=== PATIENT | male | born 1965 | race American Indian/Alaskan Native ===

== ENCOUNTER 2017-11-22 09:28 | Day surgery (SDC) | payer OTHER ==
[~2017-11-22 09:28] MED LIST: ANCEF/STERILE WATER 2 GM/20 ML IV NR
[2017-11-22] MEDS ORDERED: PERCOCET 5/325 PO PRN ×2 (10:02→15:30)
--- NOTE | 2017-11-22 10:02 | Anesthesia Consultation ---
Anesthesia Consult and Med Hx Date of service: 11/22/17 - Airway Anesthetic Teeth Evaluation: Bridges, Dentures ROM Head & Neck: Adequate Mental/Hyoid Distance: Adequate Mallampati Class: Class II Intubation Access Assessment: Probably Good - Pulmonary Exam CTA: Yes - Cardiac Exam Cardiac Exam: RRR - Pre-Operative Health Status ASA Pre-Surgery Classification: ASA2 Proposed Anesthetic Plan: General - Pulmonary Hx Smoking: Yes (SINCE AGE 9, 2-3 CIG/DAY) - Central Nervous System Hx Psychiatric Problems: No - Other Systems Hx Alcohol Use: Yes (OCCAS) Hx Substance Use: Yes (MARIJUANA) Hx Cancer: No - Additional Comments Anesthesia Medical History Comments: Informed consent obtained
--- NOTE | 2017-11-22 10:02 | Anesthesia Day of Surgery ---
Anesthesia Day of Surgery - Day of Surgery Patient Examined: Yes Patient H&P Reviewed: Yes Patient is NPO: Yes
[2017-11-22] MEDS ORDERED: NACL BACTERIOSTATIC INFILTRATI ONE (10:04)
[2017-11-22] MEDS ORDERED: DIPRIVAN 10 MG/ML IV ONE (10:23)
[2017-11-22] MEDS ORDERED: XYLOCAINE MPF 2% ONE (10:23)
[2017-11-22] MEDS ORDERED: ZEMURON IV ONE ×2 (10:24→13:26)
[2017-11-22] MEDS ORDERED: ZOFRAN ONE (10:24)
[2017-11-22] MEDS ORDERED: DECADRON ONE (10:24)
[2017-11-22] MEDS ORDERED: VERSED IV NR (11:00)
[2017-11-22] MEDS ORDERED: NACL 0.9% 1000 ML 1,000 ML IV SCH (11:00)
[2017-11-22] MEDS ORDERED: MARCAINE-EPI 0.5%-1:200,000 INFILTRATI ONE (11:09)
[2017-11-22] MEDS ORDERED: WATER FOR IRRIG STERILE IR ONE (11:17)
[2017-11-22] MEDS ORDERED: NACL 0.9% IR ONE (11:17)
[2017-11-22] MEDS ORDERED: MARCAINE-EPI 0.25%-1:200,000 INFILTRATI ONE (11:17)
[2017-11-22] MEDS ORDERED: DILAUDID ONE ×2 (11:31→12:57)
--- NOTE | 2017-11-22 13:00 | Consultation ---
History of Present Illness - Reason for Consult Consult date: 11/22/17 - History of Present Illness CC - "unable to insert ramachandran" HPI-- 52 yr old male to undergo hernia repair staff unable to insert ramachandran intro op urology consult uncirc normal testes & scrotum a/P bulbar urethral stricture (cysto, blue sound dilation) home with 16 F cahto tip catheter voiding trial in 7-10 days (office will call pt) cipro/ bactrim etc x 2 weeks Medications and Allergies Allergies Allergy/AdvReac Type Severity Reaction Status Date / Time No Known Allergies Allergy Verified 11/20/17 10:03 Home Medications Medication Instructions Recorded Confirmed Last Taken Type No Known Home Medications [No 11/20/17 11/20/17 Unknown History Reported Home Medications] Active Meds: Active Medications Cefazolin Sodium (Ancef/Sterile Water 2 Gm/20 Ml) 2 gm IV PREOP NR Stop: 11/22/17 23:59 Hydromorphone HCl (Dilaudid) 0.5 mg IV Q10MIN PRN PRN Reason: Pain , Severe (7-10) Stop: 11/22/17 15:00 Sodium Chloride (Nacl 0.9% 1000 Ml) 1,000 mls @ 100 mls/hr IV DIRECT SOLOMON Last Admin: 11/22/17 10:25 Dose: 100 mls/hr Midazolam HCl (Versed) 2 mg IV PREOP NR Stop: 11/22/17 23:59 Last Admin: 11/22/17 10:27 Dose: 2 mg Oxycodone/Acetaminophen (Percocet 5/325) 1 tab PO ONCE PRN PRN Reason: Pain, Moderate (4-6) Stop: 11/22/17 15:00 Exam - Constitutional Vitals: Temp Pulse Resp BP Pulse Ox 97.4 F L 52 L 20 156/92 100 11/22/17 10:15 11/22/17 10:15 11/22/17 10:15 11/22/17 10:15 11/22/17 10:15
[2017-11-22] MEDS ORDERED: TORADOL ONE (13:54)
--- NOTE | 2017-11-22 14:14 | Operative Report ---
Operative Report Operative Report: Date of procedure: 11/22/2017 Pre-operative diagnosis: Left inguinal hernia Post-operative diagnosis: Left inguinal hernia, urethral stricture Procedure name(s): Laparoscopic preperitoneal left inguinal hernia repair with mesh, intraoperative consult to urology for cystoscopy and catheter placement Surgeon: Elizabeth Kelly MD Fryer Operator: None Anesthesia: General, 0.25% Marcaine EBL: Minimal Complications: None Instrument Count: Correct Indications: This is a 52-year-old male with a history of left inguinal bulge. Clinical examination reveals a left inguinal hernia. The above-named procedure was offered to the patient and all risks and benefits were discussed until all questions were answered. He was subsequently brought to the OR. Findings: As above Procedure: The patient was placed supine upon the table after adequate anesthesia was reached. We had difficulty with the Landaverde catheter and after unsuccessful placement consult the urology. Please refer to their dictation. Once the catheter was placed, we reviewed the informed consent. The patient was then prepped and draped in the usual sterile fashion. We infiltrated local anesthetic at the level of the umbilicus. A 1 cm incision was made. Dissection was carried down to the anterior layer of the rectus sheath. This was incised using a 15 blade. The rectus muscles identify retract and laterally. We then inserted a Covidian oval balloon dissector into the pre- peritoneal space. This was inflated. We were clearly able to see the pubic arch as well as the epigastric vessels without difficulty. The balloon was then deflated and substituted for a 10 mm balloon tipped trocar. The preperitoneal space was insufflated a 10 mm mercury. We placed 2 5mm ports both in the midline after infiltration of local anesthetic. This was performed under direct vision. We began our dissection on the left and dissected free the hernia sac from the cord structures. Both the gonadal vessels and the vas deferens were identified and preserved. We then inserted a medium Bard 3-D Max left sided medium mesh into the preperitoneal space. This was secured medially to Leandro's ligament using a Protack device and superiorly and laterally to the anterior abdominal wall. Care was taken to avoid the iliopubic tract. We good coverage of all hernia spaces. I applied Avitene throughout the inguinal space to aid in hemostasis. We then evacuated the insufflation. Removed all ports, and closed all port sites using a 4-0 Monocryl in a subcuticular fashion. The patient tolerated the procedure well was awakened, extubated, and transferred to PACU in no apparent distress.
--- NOTE | 2017-11-22 14:17 | Short Stay Summary ---
Short Stay Documentation Date of service: 11/22/17 - History H&P: dictated - Allergies and Medications Current Medications: Allergies No Known Allergies Allergy (Verified 11/20/17 10:03) Home Medications Medication Instructions Recorded Confirmed Last Taken Type No Known Home Medications [No 11/20/17 11/20/17 Unknown History Reported Home Medications] Active Medications Cefazolin Sodium (Ancef/Sterile Water 2 Gm/20 Ml) 2 gm IV PREOP NR Stop: 11/22/17 23:59 Hydromorphone HCl (Dilaudid) 0.5 mg IV Q10MIN PRN PRN Reason: Pain , Severe (7-10) Stop: 11/22/17 15:00 Sodium Chloride (Nacl 0.9% 1000 Ml) 1,000 mls @ 100 mls/hr IV DIRECT SOLOMON Last Admin: 11/22/17 10:25 Dose: 100 mls/hr Midazolam HCl (Versed) 2 mg IV PREOP NR Stop: 11/22/17 23:59 Last Admin: 11/22/17 10:27 Dose: 2 mg Oxycodone/Acetaminophen (Percocet 5/325) 1 tab PO ONCE PRN PRN Reason: Pain, Moderate (4-6) Stop: 11/22/17 15:00 - Brief post op/procedure progress note Date of procedure: 11/22/17 Pre-op diagnosis: left inguinal hernia Post-op diagnosis: same Procedure: Laparoscopic preperitoneal left inguinal hernia repair with mesh Anesthesia: GETA, local Findings: Inguinal scrotal left inguinal hernia, urethral stricture Surgeon: ARIANE POST Estimated blood loss: 50-100ml Pathology: none Condition: stable - Disposition Condition at discharge: Stable Disposition: DC-01 TO HOME OR SELFCARE Short Stay Discharge Plan Activity: no restrictions, advance as tolerated Diet: regular Wound: keep clean and dry Follow up with: ANOOP HOROWITZ [Primary Care Provider] - 7 Days DONNA CHAPMAN MD [Staff Physician] - 7 Days ARIANE POST MD [Staff Physician] - 7 Days Prescriptions: oxyCODONE /ACETAMINOPHEN [Percocet 5/325 mg] 1 tab PO ONCE PRN #30 tablet PRN Reason: Pain, Moderate (4-6)
[2017-11-22] MEDS: DILAUDID IV PRN ×2 (14:25→14:38)
--- NOTE | 2017-11-22 14:48 | Operative Report ---
PREOPERATIVE DIAGNOSIS: Urethral stricture. POSTOPERATIVE DIAGNOSES: Urethral stricture. PROCEDURES: Cystoscopy, urethral dilatation, 16-Cambodian [place] tip catheter placement. SURGEON: Kar Sarmiento MD. ANESTHESIA: General. ESTIMATED BLOOD LOSS: Minimal. FLUIDS: Crystalloid. COMPLICATIONS: No complications. INDICATIONS: This patient is a 52-year-old gentleman who is undergoing a laparoscopic hernia repair by Dr. Kelly. The patient was in the operating room. Attempts to place a Landaverde catheter by staff was unsuccessful. He developed blood at the meatus. Urology consult was obtained. Per the surgeon, the patient did not have any significant voiding complaints prior to surgery. DESCRIPTION OF PROCEDURE: Upon entering the operating room, the patient was already asleep in a supine position, uncircumcised phallus. Flexible cystoscopy was performed. Obvious pinpoint bulbar stricture could be appreciated. A small false passage was noted. I was able to cannulate the tight stricture with a 0.035 Glidewire, removed the scope, then used bloop sounds from 8-Cambodian up to 18-Cambodian. Cystoscopy was performed. Prostate nonobstructing. Bladder, no tumors or stones were noted. A 16-Cambodian Landaverde [place] tip catheter was advanced over the wire, left indwelling, 5 mL in the balloon at the surgeon's request. We would recommend keeping the Landaverde catheter for 7-0 days, voiding trial at that point. Go home on Cipro or antibiotic of choice. JOB# [id number] Roberto/SILVIA
--- NOTE | 2017-11-22 15:40 | Post Anesthesia Evaluation ---
- Post Anesthesia Evaluation Patient Participated: Yes Airway Patent: Yes Stable Respiratory Function: Yes Nausea/Vomiting: No Temp > 96.8F: Yes Pain Manageable: Yes Adequeate Hydration: Yes Anesthesia Complications: No
[2017-11-22 16:37] VITALS: BP 142/82
== END 2017-11-22 16:35 | disposition home or self-care (01) ==
LOC: OR 09:28
PROVIDERS: ATTEND Surgery
DX: K40.90 Unilateral inguinal hernia, without obstruction or gangrene, not specified as recurrent (principal); N35.9 Urethral stricture, unspecified; F17.210 Nicotine dependence, cigarettes, uncomplicated
CPT/HCPCS: 49650; 52281; A4217; J0690; J1100; J1170; J1885; J2250; J2405; J2704; J7030; C1726; C1769; C1781; C1885